=== PATIENT | female | born 1955 | race Caucasian/White ===

== ENCOUNTER → 2016-12-28 | Outpatient (CLI) | payer OTHER ==
[~2016-12-28] MED LIST: CYCL5TAB PO; METO-648 PO; NRN/600 PO; SIMV10TA2 PO; [UNRECOGNIZED DRUG - OTHER] PO
--- NOTE | 2016-12-28 15:19 | DIAGNOSTIC IMAGING REPORT ---
LEFT RIBS UNILATERAL WITH PA CHEST CLINICAL HISTORY: Left anterior rib pain COMPARISON STUDY: No previous studies for comparison. FINDINGS: The heart is mildly enlarged. No pneumothorax is visualized. There is no focal pulmonary consolidation. No left-sided rib fractures are visualized. IMPRESSION: No evidence of pneumothorax. No left-sided rib fractures are visualized. Electronically signed by: Jordan Cody M.D. 12/28/2016 3:17 PM Dictated Date/Time: 12/28/2016 3:16 PM
== END | disposition home or self-care (01) ==
LOC: C.RAD1850 14:59
PROVIDERS: ATTEND Family Medicine
DX: R07.9 Chest pain, unspecified (principal)

== ENCOUNTER 2017-08-09 11:56 | Emergency (ER) | payer OTHER ==
[~2017-08-09] VITALS: Ht 177.8 cm; Wt 102.6 kg
[2017-08-09 12:05] VITALS: TEMP 37.6
--- NOTE | 2017-08-09 12:11 | EMERGENCY ROOM VISIT NOTE ---
History Report prepared by Ninoska: Gomez Mcclure Under the Supervision of: Dr. Masood Wesley D.O. First contact with patient: 12:04 Chief Complaint: STROKE SYMPTOMS Stated Complaint: WEAKNESS Nursing Triage Summary: since wednesday pt has been having jhon leg weakness, also had some nausea. this am about 0800 developed some dizzines lasted only briefly, felt better after sitting down. pt drove self to [facility] office. pt sent her by ALS for stroke sx and for a CT scan. History of Present Illness The patient is a 62 year old female who presents to the Emergency Room via ALS with complaints of persistent bilateral leg weakness that started 2 days ago. She states that she has had some nausea and coughing since then as well. The patient notes that she woke up around 4 hour ago with brief dizziness that resolved upon sitting down. She then drove herself to her doctor's office, and was then sent here for a stroke workup. The patient denies any leg pain, leg swelling, headaches, chest pain, shortness of breath, or vomiting. She does add that she has been urinating a lot more the past few days. She is a smoker. Source of History: patient, nursing staff Onset: 2 days ago Position: leg (bilateral) Quality: other (weakness) Timing: other (persistent) Associated Symptoms: + cough, + nausea, + urinary symptoms (increased frequency), No headache, No chest pain, No SOB, No vomiting Note: Associated symptoms: Brief dizziness. Denies leg pain, leg swelling. Review of Systems See HPI for pertinent positives & negatives. A total of 10 systems reviewed and were otherwise negative. Past Medical & Surgical Medical Problems: (1) HTN (hypertension) (2) Kidney stones Family History Cancer Lung disease Social History Smoking Status: Current Some Day Smoker Housing Status: lives alone Occupation Status: employed Current/Historical Medications Scheduled Flecainide (Tambocor), 150 MG PO Q12 Fluticasone Prop/Salmeterol (Advair Diskus 100/50 60 Dose), 1 PUFF INH BID Gabapentin (Neurontin), 200 MG PO BID Levofloxacin (Levaquin), 500 MG PO DAILY Metoprolol Tartrate (Lopressor), 100 MG PO BID Tiotropium [place] (Spiriva Handihaler), 1 CAP INH BID Allergies Coded Allergies: No Known Allergies (Unverified , 08/09/17) Physical Exam Vital Signs Date Time Temp Pulse Resp B/P (MAP) Pulse Ox O2 Delivery O2 Flow Rate FiO2 08/09/17 14:30 88 16 115/79 98 08/09/17 13:36 72 16 117/81 95 Room Air 08/09/17 12:51 74 08/09/17 12:26 98 Room Air 08/09/17 12:26 98 Room Air 08/09/17 12:26 75 16 145/76 98 Room Air 72 142/74 69 142/76 08/09/17 12:05 37.6 82 20 129/75 95 Room Air Physical Exam GENERAL: Patient is awake, alert, and in no acute distress. Patient is resting comfortably and showing no signs of anxiety EYES: The conjunctivae are clear. The pupils are round and reactive. EARS, NOSE, MOUTH AND THROAT: The nose is without any evidence of any deformity. Mucous membranes are moist tongue is midline NECK: The neck is nontender and supple. RESPIRATORY: Normal respiratory effort is noted there is no evidence of wheezing rhonchi or rales CARDIOVASCULAR: Regular rate and rhythm noted there no murmurs rubs or gallops normal S1 normal S2 GASTROINTESTINAL: The abdomen is soft. Bowel sounds are present in all quadrants. Abdomen is nontender MUSCULOSKELETAL/EXTREMITIES: There is no evidence of gross deformity full range of motion is noted in the hips and shoulders SKIN: There is no obvious evidence of any rash. There are no petechiae, pallor or cyanosis noted. NEUROLOGIC: Patient is awake alert and oriented x3 strength is symmetric patellar reflexes are 2+ bilaterally Medical Decision & Procedures ER Provider Diagnostic Interpretation: Radiology results as stated below per my review and radiologist interpretation: CT HEAD WITHOUT CONTRAST (CT) CLINICAL HISTORY: Altered mental status. Weakness. COMPARISON STUDY: No previous studies for comparison. TECHNIQUE: Axial CT of the brain is performed from the vertex to the skull base. IV contrast was not administered for this examination. A dose lowering technique was utilized adhering to the principles of ALARA. CT DOSE: 2006.90 mGycm FINDINGS: No intra or extra-axial mass lesions are visualized. There is no CT evidence of acute cortical infarction. There is no evidence of midline shift. There is no acute hemorrhage. No calvarial fractures are visualized. There are minor white matter hypodensities likely on a small vessel basis. There is no evidence of pathologic ventricular dilatation. There is no evidence of acute sinusitis IMPRESSION: No acute intracranial findings Electronically signed by: Jordan Cody M.D. 08/09/2017 1:08 PM Dictated Date/Time: 08/09/2017 1:07 PM CHEST ONE VIEW PORTABLE CLINICAL HISTORY: Altered mental status. Weakness. COMPARISON STUDY: 07/02/2015 FINDINGS: The heart is the upper limits of normal in size. Since the prior study, the patient has developed a right perihilar airspace opacity. In the proper clinical setting, this represents a pneumonia. Underlying mass cannot be excluded. Clinical and radiographic follow-up is recommended[ IMPRESSION: 1. Interval development of a right perihilar airspace opacity. While likely representing a focal pneumonia, an underlying mass cannot be excluded. Clinical and radiographic follow-up is recommended Electronically signed by: Jordan Cody M.D. 08/09/2017 1:10 PM Dictated Date/Time: 08/09/2017 1:08 PM (CHEST FOR PE) ANGIO WITH CLINICAL HISTORY: 62 years-old Female presenting with right-sided mass on chest x-ray, bilateral leg weakness, nausea, dizziness, concern for stroke symptoms. TECHNIQUE: Multidetector CT angiography of the chest was performed after administration of intravenous contrast. 3-D volumetric and/or maximum intensity projection (MIP) images were subsequently reconstructed for review. IV contrast: 120 mL of Optiray 320. A dose lowering technique was used consistent with the principles of ALARA (as low as reasonably achievable). COMPARISON: Chest x-ray performed earlier the same day and CTA from 11/12/2012. CT DOSE (mGy.cm): The estimated cumulative dose is 710.10 mGy.cm. FINDINGS: [employer] topogram: Right lung opacity. Pulmonary vasculature: The study is adequate for assessment of the pulmonary vascular tree. No filling defect within the pulmonary arteries to suggest embolus. Main pulmonary artery is not enlarged. No flattening of the interventricular septum. No intracardiac intracardiac filling defect. No reflux of contrast into the hepatic veins. Remaining chest: On soft tissue windows, normal thyroid and thoracic inlet. No axillary, supraclavicular, hilar, or mediastinal lymphadenopathy. Atherosclerosis of the aorta. Mild multichamber enlargement of the heart. No pericardial or pleural effusion. Upper abdomen normal. On lung windows, dependent changes in the lungs. Additionally, focal consolidation in the posterior right upper lobe abutting the minor fissure and major fissure. Associated bronchial wall thickening and partial obstruction of subsegmental airways. Extension of centrilobular groundglass opacities towards the right apex. Minimal groundglass opacity in the right middle lobe. The left lung is clear apart from atelectasis at the lung base. On bone windows, degenerative changes of the spine. IMPRESSION: 1. No evidence of pulmonary embolus. 2. Focal consolidation primarily in the posterior right upper lobe. This is consistent with pneumonia. Resultant bronchial wall thickening and mucous plugging. Minimal extension of infection to the right apex and right middle lobe. Electronically signed by: Darci Slaughter M.D. 08/09/2017 2:14 PM Dictated Date/Time: 08/09/2017 2:07 PM Laboratory Results 08/09/17 12:35 Red Blood Count 4.59, Mean Corpuscular Volume 91.7, Mean Corpuscular Hemoglobin 33.3, Mean Corpuscular Hemoglobin Concent 36.3, Mean Platelet Volume 11.0, Neutrophils (%) (Auto) 57.6, Lymphocytes (%) (Auto) 21.8, Monocytes (%) (Auto) 19.8, Eosinophils (%) (Auto) 0.3, Basophils (%) (Auto) 0.4, Neutrophils # (Auto ) 4.02, Lymphocytes # (Auto) 1.52, Monocytes # (Auto) 1.38, Eosinophils # (Auto ) 0.02, Basophils # (Auto) 0.03 08/09/17 12:35 Test 08/09/17 12:35 White Blood Count 6.98 K/uL (4.8-10.8) Red Blood Count 4.59 M/uL (4.2-5.4) Hemoglobin 15.3 g/dL (12.0-16.0) Hematocrit 42.1 % (37-47) Mean Corpuscular Volume 91.7 fL (80-100) Mean Corpuscular Hemoglobin 33.3 pg (25-34) Mean Corpuscular Hemoglobin Concent 36.3 g/dl (32-36) Platelet Count 166 K/uL (130-400) Mean Platelet Volume 11.0 fL (7.4-10.4) Neutrophils (%) (Auto) 57.6 % Lymphocytes (%) (Auto) 21.8 % Monocytes (%) (Auto) 19.8 % Eosinophils (%) (Auto) 0.3 % Basophils (%) (Auto) 0.4 % Neutrophils # (Auto) 4.02 K/uL (1.4-6.5) Lymphocytes # (Auto) 1.52 K/uL (1.2-3.4) Monocytes # (Auto) 1.38 K/uL (0.11-0.59) Eosinophils # (Auto) 0.02 K/uL (0-0.5) Basophils # (Auto) 0.03 K/uL (0-0.2) RDW Standard Deviation 40.7 fL (36.4-46.3) RDW Coefficient of Variation 12.1 % (11.5-14.5) Immature Granulocyte % (Auto) 0.1 % Immature Granulocyte # (Auto) 0.01 K/uL (0.00-0.02) Prothrombin Time 10.7 SECONDS (9.0-12.0) Prothromb Time International Ratio 1.0 (0.9-1.1) Activated Partial Thromboplast Time 30.5 SECONDS (21.0-31.0) Partial Thromboplastin Ratio 1.2 Anion Gap 11.0 mmol/L (3-11) Est Creatinine Clear Calc Drug Dose 84.3 ml/min Estimated GFR () 78.4 Estimated GFR (Non- 67.7 BUN/Creatinine Ratio 14.9 (10-20) Calcium Level 8.5 mg/dl (8.5-10.1) Magnesium Level 2.0 mg/dl (1.8-2.4) Total Bilirubin 0.6 mg/dl (0.2-1) Direct Bilirubin 0.1 mg/dl (0-0.2) Aspartate Amino Transf (AST/SGOT) 15 U/L (15-37) Alanine Aminotransferase (ALT/SGPT) 19 U/L (12-78) Alkaline Phosphatase 106 U/L (45-117) Total Creatine Kinase 80 U/L (26-192) Creatine Kinase MB < 0.5 ng/ml (0.5-3.6) Creatine Kinase MB Ratio (0-3.0) Troponin I < 0.015 ng/ml (0-0.045) Total Protein 7.4 gm/dl (6.4-8.2) Albumin 3.6 gm/dl (3.4-5.0) Thyroid Stimulating Hormone (TSH) 1.120 uIu/ml (0.300-4.500) Laboratory results per my review. Medications Administered Medications (Trade) Dose Ordered Sig/Negar Route Start Time Stop Time Status Last Admin Dose Admin Levofloxacin (Levaquin Tab) 500 mg NOW STAT PO 08/09/17 14:26 08/09/17 14:27 DC 08/09/17 14:54 500 MG ECG Indication: weakness Rate (beats per minute): 75 Rhythm: normal sinus Findings: PAC (frequent), ST depression (diffuse) Change: no significant change (11/12/12) ED Course 1205: The patient was evaluated in room C12A. A complete history and physical examination were performed. 1318: I reevaluated and updated the patient. 1426: Ordered Levaquin Tab 500 mg PO. 1429: Upon reevaluation, the patient is resting. I talked to the case management assistant to see if they could set the patient up for an appointment. I discussed the results and treatment plan with her. She verbalized agreement of the treatment plan. She was discharged home. Medical Decision Differential diagnosis: Etiologies such as metabolic, infection, hypo/hyperglycemia, electrolyte abnormalities, cardiac sources, intracerebral event, toxicologic, neurologic, as well as others were entertained. Nursing notes reviewed. The patient is a 62-year-old female who presented to the emergency department for an evaluation of lower extremity pain and weakness. The patient was seen by her primary care physician and was sent to the emergency department for the possibility of stroke even though she had a normal neurologic exam. The patient also complained of cough. She had an abnormality noted on chest x-ray. Given her other complaints as well as her hyponatremia was concerned this could represent a pulmonary mass. CT the chest was obtained but showed signs of infiltrate. The patient was started on antibiotics in emergency department. I discussed the patient's laboratory and radiographic studies with her. I do feel she may require further workup for risk stratification for stroke such as echocardiogram and carotid Dopplers but at this time I do not feel that she requires admission for these tests. I discussed her case with the community case manager and they were able to get the patient a follow-up appointment to have other tests scheduled. She was encouraged to continue all medications as prescribed and rest. She was also encouraged to return to the emergency department immediately symptoms change worsen or the need arises. Medication Reconcilliation Current Medication List: was personally reviewed by me Blood Pressure Screening Patient's blood pressure: Normal blood pressure Impression Primary Impression: Weakness Additional Impressions: PNA (pneumonia) Hyponatremia Scribe Attestation The scribe's documentation has been prepared under my direction and personally reviewed by me in its entirety. I confirm that the note above accurately reflects all work, treatment, procedures, and medical decision making performed by me. Departure Information Dispostion Home / Self-Care Prescriptions Levofloxacin (Levaquin) 500 Mg Tab 500 MG PO DAILY, #10 TAB Prov: Masood Wesley, DO 08/09/17 Referrals Shelia Ross M.D. (PCP) Forms HOME CARE DOCUMENTATION FORM, IMPORTANT VISIT INFORMATION, Work Instructions Patient Instructions Hyponatremia Dc, My [facility], Pneumonia Additional Instructions Continue all medications as prescribed. Follow-up with your family doctor as scheduled. Rest and avoid any strenuous activity. Return to the emergency department if symptoms worsen or if need arises. Discussed the possibility with your family doctor that you may require further studies such as an echocardiogram and carotid Dopplers to further evaluate your risk for stroke in the future. Problem Qualifiers Additional Impressions: PNA (pneumonia) Pneumonia type: due to unspecified organism Laterality: unspecified laterality Lung location: unspecified part of lung Qualified Codes: J18.9 - Pneumonia, unspecified organism
[2017-08-09 12:26] VITALS: O2SAT 98
[2017-08-09 12:54] LABS: BASO % 0.4 %; BASO ABS # 0.03 K/uL (0-0.2); COMPLETE YES; EOS % 0.3 %; HEMATOCRIT 42.1 % (37-47); IG% 0.1 %; LYMPH % 21.8 %; LYMPH ABS # 1.52 K/uL (1.2-3.4); MEAN CELL VOLUME 91.7 fL (80-100); MEAN CORPUSCULAR HEMOGLOBIN 33.3 pg (25-34); MEAN CORPUSCULAR HGB CONC 36.3 g/dl (32-36); MONO % 19.8 %; NEUT % 57.6 %; PLATELET COUNT 166 K/uL (130-400); RED BLOOD COUNT 4.59 M/uL (4.2-5.4); WHITE BLOOD COUNT 6.98 K/uL (4.8-10.8)
[2017-08-09 13:00] VITALS: Ht 177.8 cm; Wt 102.6 kg
[2017-08-09 13:03] LABS: PARTIAL THROMBOPLASTIN RATIO 1.2; PROTHROMBIN TIME (PATIENT) 10.7 SECONDS (9.0-12.0)
--- NOTE | 2017-08-09 13:09 | DIAGNOSTIC IMAGING REPORT ---
CT HEAD WITHOUT CONTRAST (CT) CLINICAL HISTORY: Altered mental status. Weakness. COMPARISON STUDY: No previous studies for comparison. TECHNIQUE: Axial CT of the brain is performed from the vertex to the skull base. IV contrast was not administered for this examination. A dose lowering technique was utilized adhering to the principles of ALARA. CT DOSE: 2006.90 mGycm FINDINGS: No intra or extra-axial mass lesions are visualized. There is no CT evidence of acute cortical infarction. There is no evidence of midline shift. There is no acute hemorrhage. No calvarial fractures are visualized. There are minor white matter hypodensities likely on a small vessel basis. There is no evidence of pathologic ventricular dilatation. There is no evidence of acute sinusitis IMPRESSION: No acute intracranial findings Electronically signed by: Jordan Cody M.D. 08/09/2017 1:08 PM Dictated Date/Time: 08/09/2017 1:07 PM
--- NOTE | 2017-08-09 13:11 | DIAGNOSTIC IMAGING REPORT ---
CHEST ONE VIEW PORTABLE CLINICAL HISTORY: Altered mental status. Weakness. COMPARISON STUDY: 07/02/2015 FINDINGS: The heart is the upper limits of normal in size. Since the prior study, the patient has developed a right perihilar airspace opacity. In the proper clinical setting, this represents a pneumonia. Underlying mass cannot be excluded. Clinical and radiographic follow-up is recommended[ IMPRESSION: 1. Interval development of a right perihilar airspace opacity. While likely representing a focal pneumonia, an underlying mass cannot be excluded. Clinical and radiographic follow-up is recommended Electronically signed by: Jordan Cody M.D. 08/09/2017 1:10 PM Dictated Date/Time: 08/09/2017 1:08 PM
[2017-08-09 13:14] LABS: ALT/SGPT 19 U/L (12-78); BLOOD UREA NITROGEN 14 mg/dl (7-18); BUN/CREATININE RATIO 14.9 (10-20); CALCIUM 8.5 mg/dl (8.5-10.1); CARBON DIOXIDE 22 mmol/L (21-32); CHLORIDE 93 mmol/L (98-107); CREATININE 0.92 mg/dl (0.60-1.20); GLUCOSE 113 mg/dl (70-99); POTASSIUM 3.8 mmol/L (3.5-5.1); SODIUM 126 mmol/L (136-145)
[2017-08-09 13:23] LABS: ALKALINE PHOSPHATASE 106 U/L (45-117); AST/SGOT 15 U/L (15-37)
[2017-08-09] MEDS ORDERED: OPTIRAY 320 IV PRN (13:30)
[2017-08-09] MEDS ORDERED: SPRIN/30 INH (14:10)
--- NOTE | 2017-08-09 14:15 | DIAGNOSTIC IMAGING REPORT ---
(CHEST FOR PE) ANGIO WITH CLINICAL HISTORY: 62 years-old Female presenting with right-sided mass on chest x-ray, bilateral leg weakness, nausea, dizziness, concern for stroke symptoms. TECHNIQUE: Multidetector CT angiography of the chest was performed after administration of intravenous contrast. 3-D volumetric and/or maximum intensity projection (MIP) images were subsequently reconstructed for review. IV contrast: 120 mL of Optiray 320. A dose lowering technique was used consistent with the principles of ALARA (as low as reasonably achievable). COMPARISON: Chest x-ray performed earlier the same day and CTA from 11/12/2012. CT DOSE (mGy.cm): The estimated cumulative dose is 710.10 mGy.cm. FINDINGS: [employer] topogram: Right lung opacity. Pulmonary vasculature: The study is adequate for assessment of the pulmonary vascular tree. No filling defect within the pulmonary arteries to suggest embolus. Main pulmonary artery is not enlarged. No flattening of the interventricular septum. No intracardiac intracardiac filling defect. No reflux of contrast into the hepatic veins. Remaining chest: On soft tissue windows, normal thyroid and thoracic inlet. No axillary, supraclavicular, hilar, or mediastinal lymphadenopathy. Atherosclerosis of the aorta. Mild multichamber enlargement of the heart. No pericardial or pleural effusion. Upper abdomen normal. On lung windows, dependent changes in the lungs. Additionally, focal consolidation in the posterior right upper lobe abutting the minor fissure and major fissure. Associated bronchial wall thickening and partial obstruction of subsegmental airways. Extension of centrilobular groundglass opacities towards the right apex. Minimal groundglass opacity in the right middle lobe. The left lung is clear apart from atelectasis at the lung base. On bone windows, degenerative changes of the spine. IMPRESSION: 1. No evidence of pulmonary embolus. 2. Focal consolidation primarily in the posterior right upper lobe. This is consistent with pneumonia. Resultant bronchial wall thickening and mucous plugging. Minimal extension of infection to the right apex and right middle lobe. Electronically signed by: Darci Slaughter M.D. 08/09/2017 2:14 PM Dictated Date/Time: 08/09/2017 2:07 PM
[2017-08-09] MEDS ORDERED: LEVOFLOXACIN 250 MG TAB PO STA (14:26)
[2017-08-09 14:30] VITALS: BP 115/79; PULSE 88; O2SAT 98
[2017-08-09] MEDS ORDERED: ADVIN10/60 INH (14:34)
[2017-08-09] MEDS ORDERED: FLEC100T21 PO (14:34)
[2017-08-09] MEDS ORDERED: GABA1CAP PO (14:34)
[2017-08-09] MEDS ORDERED: METO-596 PO (14:34)
[2017-08-09] MEDS ORDERED: LEVO1TAB33 PO (14:36)
== END 2017-08-09 15:09 | disposition home or self-care (01) ==
LOC: EDBD 11:56 → C.EDC 11:57
DX: R53.1 Weakness (principal); J18.9 Pneumonia, unspecified organism; E87.1 Hypo-osmolality and hyponatremia; M79.669 Pain in unspecified lower leg; I10 Essential (primary) hypertension; F17.200 Nicotine dependence, unspecified, uncomplicated; Z87.442 Personal history of urinary calculi; Z79.899 Other long term (current) drug therapy; Z80.9 Family history of malignant neoplasm, unspecified

== ENCOUNTER → 2017-12-29 | Outpatient (CLI) | payer OTHER ==
[~2017-12-29] MED LIST changes: +ADVIN10/60 INH; -CYCL5TAB PO; +FLEC100T21 PO; +GABA100C13 PO; +LEVO1TAB33 PO; +METO-596 PO; -METO-648 PO; -NRN/600 PO; -SIMV10TA2 PO; +SPRIN/30 INH; -[UNRECOGNIZED DRUG - OTHER] PO
--- NOTE | 2017-12-29 11:34 | DIAGNOSTIC IMAGING REPORT ---
L SHOULDER MIN 2 VIEWS CLINICAL HISTORY: LEFT SHOULDER PAIN pain COMPARISON: None. DISCUSSION: Mild degenerative change of the glenohumeral joint. No abnormal soft tissue calcifications. No evidence for fracture or dislocation. There is no evidence for soft tissue swelling. IMPRESSION: Minimal/mild degenerative change. No acute process. The above report was generated using voice recognition software. It may contain grammatical, syntax or spelling errors. Electronically signed by: Cedric Alcantar M.D. 12/29/2017 11:32 AM Dictated Date/Time: 12/29/2017 11:32 AM
== END | disposition home or self-care (01) ==
LOC: C.RDSM 17:39
PROVIDERS: ATTEND Physician Assistant
DX: R52 Pain, unspecified (principal)

== ENCOUNTER → 2018-04-12 | Outpatient (CLI) | payer OTHER ==
[~2018-04-12] MED LIST changes: -FLEC100T21 PO; +GABA-1693 PO; -GABA100C13 PO; -LEVO1TAB33 PO; -METO-596 PO; +METO50TA16 PO
== END | disposition home or self-care (01) ==
LOC: C.PAPS 12:42
PROVIDERS: ATTEND Obstetrics & Gynecology
DX: Z01.419 Encounter for gynecological examination (general) (routine) without abnormal findings (principal)